=== PATIENT | male | born 1975 | race Caucasian/White ===

== ENCOUNTER 2022-05-22 15:47 | Outpatient (CLI) | payer BC, SELFPAY ==
[2022-05-22 17:27] LABS: Chloride* 99 mmol/L (96-114); Sodium* 134 mmol/L (135-149)
[2022-05-22 17:28] LABS: Potassium* 3.8 mmol/L (3.6-5.1)
[2022-05-22 17:30] LABS: Carbon Dioxide* 30 mmol/L (20-32); Creatinine* 0.5 mg/dL (0.5-1.5); Estimated Glomerular Filt Rate 125 ml/min
[2022-05-22 17:31] LABS: Blood Urea Nitrogen* 13 mg/dL (5-24); Calcium* 9.2 mg/dL (8.4-10.6); Glucose* 330 mg/dL (60-115)
== END 2022-05-22 15:48 | disposition home or self-care (01) ==
LOC: LONREF 15:48
PROVIDERS: PCP Family Medicine; Visit Provider Family Medicine
DX: E13.9 Other specified diabetes mellitus without complications (principal); E78.5 Hyperlipidemia, unspecified
CPT/HCPCS: 80048

== ENCOUNTER 2023-01-16 20:34 | Inpatient (IN) | payer BC, SELFPAY ==
[2023-01-16 20:46] VITALS: BP 106/69; PULSE 104; RESP 18; TEMP 37.2; O2SAT 98; BMI 23.7
[2023-01-16 20:55] VITALS: O2SAT 99
[2023-01-16] MEDS: 0.9 % SODIUM CHLORIDE 1000 ml 1,000 ML IV (20:55)
[2023-01-16] MEDS: ONDANSETRON 2 MG/ML inj 4 MG IVP (20:55)
[2023-01-16 21:23] LABS: Basophils Percent Auto 0.2 % (0.0-3.0); Eosinophils Percent Auto 0.1 % (0.0-7.0); Hematocrit 50.8 % (37.0-53.0); Hemoglobin* 16.8 gm/dL (13.5-17.5); Immature Granulocytes Pct Auto 0.3 %; Lymphocytes Percent Auto 6.4 % (20-44); Mean Corpuscular HGB Conc 33 gm/dL (32-36); Mean Corpuscular Hemoglobin 30 pg (26-34); Mean Corpuscular Volume 89 fL (80-100); Monocytes Percent Auto 4.7 % (0.0-11.0); Neutrophils Percent Auto 88.3 % (42.0-72.0); Platelet Count* 305 K/uL (140-440); RDW Coefficient of Variation % 13.1 % (11.5-15.5); Red Blood Count 5.68 m/uL (4.30-5.90)
[2023-01-16 21:36] LABS: Chloride* 98 mmol/L (96-114); Potassium* 5.2 mmol/L (3.6-5.1); Slide Review Reflex No; Sodium* 136 mmol/L (135-149)
[2023-01-16 21:39] LABS: Anion Gap 33 mEq/L (7-15); Blood Urea Nitrogen* 19 mg/dL (5-24); Est. Creatinine Clearance* 100.98; Estimated Glomerular Filt Rate 92 ml/min
[2023-01-16 21:40] LABS: Calcium* 10.4 mg/dL (8.4-10.6)
[2023-01-16 21:51] LABS: Carbon Dioxide* 5 mmol/L (20-32); Glucose* 406 mg/dL (60-115)
[2023-01-16 22:29] LABS: HCO3 VBG 10 mmol/L (21-28); PCO2 VBG 28 mmHG (40-50)
[2023-01-16 22:33] LABS: Lactate* 1.4 mmol/L (0.5-1.9); PO2 VBG 34.8 mmHG (25-47); pH VBG 7.179 (7.32-7.43)
--- NOTE | 2023-01-16 22:34 | ED.NAVMDI ---
HPI - Nausea/Vomiting/Diarrhea General Chief complaint: Diabetic Related Problem Stated complaint: blood sugar, vomiting Time Seen by Provider: 01/16/23 20:56 History of Present Illness HPI Narrative: Patient is a 47-year-old insulin-dependent diabetic who has had nausea vomiting for last 36 hours. He has not been able to take his insulin and as a result comes in with generalized fatigue dehydration and malaise. He is not making much urine. He has no overt chest pain shortness a breath orthopnea no PND. He has had no diarrhea ice had vomiting with no blood. Patient previously was in his usual good state of health. Interestingly his only home medication is 70 30 insulin. Related Data Home Medications Medication Instructions Recorded Confirmed blood sugar diagnostic (Accu-Chek 10/14/21 01/16/23 Zulema Plus test strips) blood-glucose meter (Accu-Chek 10/14/21 01/16/23 Zulema Plus Meter) lancets (Accu-Chek Softclix 10/14/21 01/16/23 Lancets) pen needle, diabetic 29 gauge x 10/14/21 01/16/23 1/2 atorvastatin 40 mg tablet 40 mg PO ONCE 01/16/23 01/16/23 Previous Rx's Medication Instructions Recorded blood-glucose meter (Blood Glucose #1 ea 10/14/21 Monitoring kit) insulin NPH-regular 70-30 U-100 See Rx Instructions .Route 06/18/22 insulin 100 unit/mL subcutaneous .COMPLEX #15 mL pen (Humulin 70/30 U-100 KwikPen) Allergies Allergy/AdvReac Type Severity Reaction Status Date / Time No Known Allergies Allergy Verified 01/16/23 21:40 Review of Systems Status of ROS: Reports: 10 or more systems reviewed and unremarkable except as noted in History and below [facility] Surgical History History of right inguinal hernia repair ?Z98.890 - Other specified postprocedural states (ICD-10) ?Z87.19 - Personal history of other diseases of the digestive system (ICD-10) History of left inguinal hernia repair ?Z98.890 - Other specified postprocedural states (ICD-10) ?Z87.19 - Personal history of other diseases of the digestive system (ICD-10) Social History Smoking Status: Current every day smoker Exam Narrative: Exam Narrative: EXAM GENERAL: Patient appears fatigued and dehydrated EYES: No scleral icterus. LYMPH: No supraclavicular or cervical lymphadenopathy. SKIN: Visible skin seen during exam normal or with benign process only. EXT: No dependent lower extremity pedal edema. HEART: Regular rate and rhythm with no murmurs, rubs, or gallops. LUNGS: Clear to auscultation bilaterally with no crackles or wheezes. ABD: Soft, non tender, non distended. PSYCH: Good eye contact, speech is not pressured. Const: Vital Signs, click to edit/add: Vital Signs - 24 hr 01/16/23 20:46 01/16/23 20:55 Temperature 98.9 F Pulse Rate [Left P ulse Oximeter] 104 H Respiratory Rate 18 Blood Pressure [Ri ght Upper Arm] 106/69 Pulse Oximetry 98 99 Oxygen Delivery Me thod Room Air Course Course ED Course: Patient seen and examined. Blood sugars noted to be elevated. Secondary blood work ordered. Vital Signs Vital signs: Initial Vital Signs Temperature 98.9 F 01/16/23 20:46 Temperature Source Temporal Artery Scan 01/16/23 20:46 Pulse Rate 104 H 01/16/23 20:46 Respiratory Rate 18 01/16/23 20:46 Blood Pressure 106/69 01/16/23 20:46 Blood Pressure Mean 81 01/16/23 20:46 Blood Pressure Position Sitting 01/16/23 20:46 Pulse Oximetry 98 01/16/23 20:46 Oxygen Delivery Method Room Air 01/16/23 20:46 Vital Signs Temperature 98.9 F 01/16/23 20:46 Pulse Rate 104 H 01/16/23 20:46 Respiratory Rate 18 01/16/23 20:46 Blood Pressure 106/69 01/16/23 20:46 Pulse Oximetry 98 01/16/23 20:46 Oxygen Delivery Method Room Air 01/16/23 20:46 Temperature 98.9 F 01/16/23 20:46 Pulse Rate 104 H 01/16/23 20:46 Respiratory Rate 18 01/16/23 20:46 Blood Pressure 106/69 01/16/23 20:46 Pulse Oximetry 99 01/16/23 20:55 Oxygen Delivery Method Room Air 01/16/23 20:46 MDM - Nausea/Vomiting/Diarrhea MDM Narrative Medical decision making narrative: Patient presents with nausea vomiting dehydration the setting of insulin-dependent diabetes mellitus. He has elevated blood sugars well as a very widened anion gap. We are treating with aggressive hydration. I have given him 10 units of regular insulin and have arranged for ICU placement to initiate insulin drip. Lactate pending venous pH pending blood cultures pending. Differential Diagnosis Differential diagnosis: Likely traveler's diarrhea, food poisoning, gastroenteritis, clostridium difficile infection, drug-induced nausea and vomiting and dehydration Lab Data Labs: Lab Results 01/16/23 01/16/23 Range/Units 20:50 22:08 WBC 17.40 H (4.50-11.00) K/uL RBC 5.68 (4.30-5.90) m/uL Hgb 16.8 (13.5-17.5) gm/dL Hct 50.8 (37.0-53.0) % MCV 89 (80-100) fL MCH 30 (26-34) pg MCHC 33 (32-36) gm/dL RDW Coeff of Des 13.1 (11.5-15.5) % Plt Count 305 (140-440) K/uL Neut % (Auto) 88.3 H (42.0-72.0) % Lymph % (Auto) 6.4 L (20-44) % Pettis % (Auto) 4.7 (0.0-11.0) % Eos % (Auto) 0.1 (0.0-7.0) % Baso % (Auto) 0.2 (0.0-3.0) % Neut # (Auto) 15.40 H (1.7-7.0) K/uL Lymph # (Auto) 1.10 (0.90-2.90) K/uL Pettis # (Auto) 0.80 (0.00-0.90) K/UL Eos # (Auto) 0.00 (0.00-0.50) K/uL Baso # (Auto) 0.00 (0.00-0.30) K/uL Abs Immat Gran (auto) 0.10 (0.00-0.30) K/uL Imm/Tot Granulo (auto) 0.3 % VBG pH 7.179 L* (7.32-7.43) VBG pCO2 28 L (40-50) mmHG VBG pO2 34.8 (25-47) mmHG VBG HCO3 10 L (21-28) mmol/L Sodium 136 (135-149) mmol/L Potassium 5.2 H (3.6-5.1) mmol/L Chloride 98 (96-114) mmol/L Carbon Dioxide 5 L* (20-32) mmol/L Anion Gap 33 H (7-15) mEq/L BUN 19 (5-24) mg/dL Creatinine 1.0 (0.5-1.5) mg/dL Estimated Creat Clear 100.98 Estimated GFR 92 ml/min Glucose 406 H* (60-115) mg/dL Calcium 10.4 (8.4-10.6) mg/dL Discharge Plan Discharge Clinical Impression: Diabetic keto-acidosis Patient Disposition: Admitted As Inpatient Condition: Improved Activity Level: Other Discharge Diet: Other Prescriptions: No Action (DME) pen needle, diabetic 29 gauge x 1/2 needle See Rx Instructions .Route Rx Instructions: 4 times daily. (DME) lancets [Accu-Chek Softclix Lancets] Misc See Rx Instructions .Route Rx Instructions: TEST FOUR TIMES DAILY. (DME) Accu-Chek Zulema Plus test strp Strip See Rx Instructions .Route Rx Instructions: TEST FOUR TIMES DAILY. (DME) blood-glucose meter [Accu-Chek Zulema Plus Meter] Misc 0 .Route (DME) blood-glucose meter [Blood Glucose Monitoring] Kit See Rx Instructions .Route Qty: 1 0RF Rx Instructions: As directed atorvastatin 40 mg tablet 40 mg PO ONCE Humulin 70/30 U-100 KwikPen 100 unit/mL (70-30) insulin pen See Rx Instructions .ROUTE .COMPLEX Qty: 15 5RF Dose Instruction: USE 18 UNITS EVERY MORNING AND 22 UNITS EVERY SUPPER Rx Instructions: USE 18 UNITS EVERY MORNING AND 22 UNITS EVERY SUPPER Follow Up/Referrals: Kody Mulligan MD [Primary Care Provider] -
[2023-01-16 22:55] LABS: Lactate* 1.4 mmol/L (0.5-1.9)
[2023-01-16 23:00] VITALS: BP 111/69; PULSE 81; RESP 16; TEMP 36.7; O2SAT 97
[2023-01-16 23:15] VITALS: BP 110/71; PULSE 84; RESP 18; TEMP 36.8; O2SAT 99
[2023-01-16 23:17] LABS: Troponin I* < 0.01 ng/mL (0.01-0.04)
[2023-01-16 23:19] VITALS: BP 110/71; PULSE 84; RESP 18; TEMP 36.8
[2023-01-16 23:30] VITALS: O2SAT 99
[2023-01-16 23:52] LABS: Hemoglobin A1C* 11.77 % (0-5.6)
[2023-01-17] VITALS (7 sets, daily range): BP systolic 94–111; BP diastolic 59–69; PULSE 77–86; RESP 16–20; TEMP 36.6–37.1; O2SAT 95–98; BMI 20.6
[2023-01-17 00:15] LABS: HCO3 VBG 14 mmol/L (21-28); PCO2 VBG 33 mmHG (40-50); PO2 VBG 30.7 mmHG (25-47)
[2023-01-17 00:18] LABS: pH VBG 7.228 (7.32-7.43)
[2023-01-17] MEDS: PANTOPRAZOLE SODIUM 40 MG INJ IVP (00:18)
[2023-01-17] MEDS: LACTATED RINGERS 1000 ML 1,000 ML 125 ML IV (00:18)
[2023-01-17] MEDS: INSULIN INF 100 UNIT/100 ML 100 UNIT/100 ML BAG IVPB (00:20)
[2023-01-17 00:48] LABS: Chloride* 103 mmol/L (96-114); Potassium* 4.9 mmol/L (3.6-5.1); Sodium* 137 mmol/L (135-149)
[2023-01-17 00:51] LABS: Anion Gap 24 mEq/L (7-15); Blood Urea Nitrogen* 19 mg/dL (5-24); Carbon Dioxide* 10 mmol/L (20-32); Creatinine* 0.7 mg/dL (0.5-1.5); Est. Creatinine Clearance* 144.26; Estimated Glomerular Filt Rate 113 ml/min; Glucose* 228 mg/dL (60-115)
[2023-01-17 00:52] LABS: Calcium* 9.6 mg/dL (8.4-10.6)
--- NOTE | 2023-01-17 01:00 | P.IMHP_ITS ---
Hospitalist- H&P: HPI History of Present Illness Date Seen: 01/17/23 Chief complaint: blood sugar, vomiting Narrative: Jamey Villanueva is a 47 year old male Seen in his hospital room at [facility] with the assistance of nursing staff. He is seen as an interactive telehealth visit. He tells me he has not been feeling well for the last couple of days he started develop nausea vomiting and just continued to get worse. When he checked his blood sugar tonight it was over 400 his significant other urged him to come in. He came into the emergency room he was evaluated found to be markedly acidotic with an elevated anion gap. He was felt to be in DKA. He has been given IV fluids he has been started on an insulin drip. He is currently feeling better. His nausea has improved. He denies any fevers chills chest pain shortness of breath. He felt like he had flulike symptoms prior to this starting. Otherwise he does not have any other complaints of. Review of Systems Narrative: A complete review of systems was performed positive pertinence and negatives per HPI [facility] Medical History Type 2 diabetes mellitus ?E11.9 - Type 2 diabetes mellitus without complications (ICD-10) Surgical History History of right inguinal hernia repair ?Z98.890 - Other specified postprocedural states (ICD-10) ?Z87.19 - Personal history of other diseases of the digestive system (ICD-10) History of left inguinal hernia repair ?Z98.890 - Other specified postprocedural states (ICD-10) ?Z87.19 - Personal history of other diseases of the digestive system (ICD-10) Social History Smoking Status: Current every day smoker How often do you have a drink containing alcohol: never How often do you have six or more drinks on one occasion: Never AUDIT-C Alcohol total score: 0 Non-prescribed substance use: denies use Meds Home Medications and Allergies Home Medications Medication Instructions Recorded Confirmed Type blood sugar diagnostic (Accu-Chek 10/14/21 01/16/23 History Zulema Plus test strips) blood-glucose meter (Accu-Chek 10/14/21 01/16/23 History Zulema Plus Meter) lancets (Accu-Chek Softclix 10/14/21 01/16/23 History Lancets) pen needle, diabetic 29 gauge x 10/14/21 01/16/23 History 1/2 atorvastatin 40 mg tablet 40 mg PO ONCE 01/16/23 01/16/23 History Allergies Allergy/AdvReac Type Severity Reaction Status Date / Time No Known Allergies Allergy Verified 01/16/23 21:40 Exam Narrative: Exam Narrative: Patient is lying in bed he is alert awake he is in no acute distress he does not look toxic he is pleasant he is interactive. Head atraumatic normocephalic pupils equal reactive there is no scleral icterus no conjunctival injection mucous membranes are moist tongue and uvula midline Neck is soft supple no adenopathy per nursing Heart regular rate and rhythm without murmurs rubs or gallops Lungs are clear to auscultation with good air movement Abdomen soft nontender bowel sounds present Extremities warm without cyanosis clubbing edema Cranial nerves II through XII grossly intact he moves all of his extremities equally, no focal deficits Const: Vital Signs, click to edit/add: Vital Signs - 24 hr 01/16/23 20:46 01/16/23 20:55 01/16/23 23:00 Temperature 98.9 F 98.0 F Pulse Rate [Left P ulse Oximeter] 104 H Pulse Rate [Pulse Oximeter] 81 Respiratory Rate 18 16 Blood Pressure [Le ft Arm] 111/69 Blood Pressure [Ri ght Upper Arm] 106/69 Pulse Oximetry 98 99 97 Oxygen Delivery Me thod Room Air Room Air 01/16/23 23:15 01/16/23 23:19 01/16/23 23:30 Temperature 98.2 F 98.2 F Pulse Rate [Left P ulse Oximeter] 84 84 Pulse Rate [Pulse Oximeter] Respiratory Rate 18 18 Blood Pressure [Le ft Arm] Blood Pressure [Ri ght Upper Arm] 110/71 110/71 Pulse Oximetry 99 99 Oxygen Delivery Me thod Room Air Hospitalist - H&P: Result Labs Labs: Short CBC 01/16/23 Range/Units 20:50 WBC 17.40 H (4.50-11.00) K/uL Hgb 16.8 (13.5-17.5) gm/dL Hct 50.8 (37.0-53.0) % Plt Count 305 (140-440) K/uL BMP 01/16/23 01/17/23 20:50 00:10 Sodium 136 137 Potassium 5.2 H 4.9 Chloride 98 103 Carbon Dioxide 5 L* 10 L BUN 19 19 Creatinine 1.0 0.7 Glucose 406 H* 228 H Calcium 10.4 9.6 Cardiac Enzymes 01/16/23 Range/Units 22:08 Troponin I < 0.01 L (0.01-0.04) ng/mL Assessment and Plan Assessment and plan (1) Diabetic keto-acidosis: Status: Acute (2) Tobacco abuse: Status: Acute (3) Latent autoimmune diabetes in adults, managed as type 1: Status: Acute (4) Leukocytosis: Status: Acute (5) Hyperkalemia: Status: Acute (6) High anion gap metabolic acidosis: Status: Acute Plan Diabetic ketoacidosis?at this point he is currently on an insulin drip. His anion gap is elevated. His sugars seem to be coming down nicely. A new BMP is currently pending. Since his blood sugar is now below 250 actually down to 211 we will transition him over to dextrose containing fluid. We will plan to use D5 NS as his sodium is normal. We will plan to check another BMP in about 4 hours along with a magnesium. Once his acidosis and anion gap has improved consider transitioning him over to his 70/30 insulin. Ideally this would be closer to the morning with his normal insulin dosing x1. Patient appears to use 40 units of insulin per 24 hours. Anticipate him to get down to needing around 2 units/h on his drip. Nicotine abuse?I did offer patient opportunity for nicotine patch which she did decline. Encouraged him to discontinue smoking. Type 1 diabetes?latent autoimmune diabetes effectively type I is evidenced by his DKA. Patient does seem to have fairly poor control as evidenced by his elevated hemoglobin A1c. Leukocytosis?likely acute demargination from the stress of the DKA. Seems unlikely to be an infection no cough no fever no chills he did have flulike symptoms prior to this coming on but seems to be mostly related to GI symptoms which certainly could be related to DKA as well. We will plan to recheck a CBC in the morning continue to watch him clinically. Hyperkalemia?likely secondary to potassium shifts from acidosis. Anticipate his potassium to come down as his acidosis improves. We will plan to recheck a BMP in the morning. DVT prophylaxis?anticipate patient to be out of the hospital fairly quickly he should also be fairly ambulatory. I think he is low risk for DVT we will hold off on DVT prophylaxis. CODE STATUS was discussed on admission and he wishes to be a full code Telehealth Visit:? Today's History and Physical is provided via interactive telehealth by (Gage France DO, Pharm. D.).? Patient is located at [facility].? Provider is located at [facility].? Nursing staff assisted with the patient's exam. The visit being done today meets criteria for a telehealth visit and the patient or patient?s parent/guardian is aware the visit is a telehealth visit. Camera Start Time: 0025 Camera End Time: 048 Gage France DO, Pharm. D.
[2023-01-17] MEDS: 5 % DEXTROSE/0.9% SOD CHLORIDE 1,000 ML 125 ML IV (01:15)
[2023-01-17 06:39] LABS: White Blood Count* 10.07 K/uL (4.50-11.00)
[2023-01-17 06:40] LABS: Basophils Absolute Auto 0.02 K/uL (0.00-0.30); Basophils Percent Auto 0.2 % (0.0-3.0); Eosinophils Absolute Auto 0.03 K/uL (0.00-0.50); Eosinophils Percent Auto 0.3 % (0.0-7.0); Hemoglobin* 14.7 gm/dL (13.5-17.5); Immature Granulocytes Abs Auto 0.03 K/uL (0.00-0.30); Immature Granulocytes Pct Auto 0.3 %; Lymphocytes Percent Auto 16.9 % (20-44); Mean Corpuscular HGB Conc 34 gm/dL (32-36); Mean Corpuscular Hemoglobin 30 pg (26-34); Mean Corpuscular Volume 86 fL (80-100); Monocytes Percent Auto 10.2 % (0.0-11.0); Neutrophils Percent Auto 72.1 % (42.0-72.0); Platelet Count* 255 K/uL (140-440); RDW Coefficient of Variation % 13.1 % (11.5-15.5); Red Blood Count 4.98 m/uL (4.30-5.90)
--- NOTE | 2023-01-17 06:41 | PC.NURSE ---
Patient to the unit at 2320 with spouse at bedside. Denies pain. Denies CP. BG 266. Insulin drip initiated. [facility] Telehealth assessed. Up date Dr. France on hourly BG checks. Verbal orders received and followed with each BG to adjust Insulin drip. Up independent. Voiding.
[2023-01-17 06:44] LABS: Slide Review Reflex No
[2023-01-17 07:04] LABS: Chloride* 107 mmol/L (96-114)
[2023-01-17 07:05] LABS: Potassium* 4.1 mmol/L (3.6-5.1); Sodium* 134 mmol/L (135-149)
[2023-01-17 07:07] LABS: Creatinine* 0.7 mg/dL (0.5-1.5); Est. Creatinine Clearance* 127.76; Estimated Glomerular Filt Rate 113 ml/min
[2023-01-17 07:08] LABS: Anion Gap 11 mEq/L (7-15); Blood Urea Nitrogen* 21 mg/dL (5-24); Calcium* 9.7 mg/dL (8.4-10.6); Carbon Dioxide* 16 mmol/L (20-32); Glucose* 205 mg/dL (60-115); Magnesium* 2.1 mg/dL (1.5-2.6)
[2023-01-17] MEDS: 5 % DEXTROSE IN LAC RINGER'S 1,000 ML 125 ML IV (07:34)
[2023-01-17 11:52] LABS: Chloride* 105 mmol/L (96-114); Potassium* 4.2 mmol/L (3.6-5.1); Sodium* 137 mmol/L (135-149)
[2023-01-17 11:55] LABS: Anion Gap 11 mEq/L (7-15); Blood Urea Nitrogen* 20 mg/dL (5-24); Carbon Dioxide* 21 mmol/L (20-32); Creatinine* 0.6 mg/dL (0.5-1.5); Est. Creatinine Clearance* 149.05; Estimated Glomerular Filt Rate 118 ml/min; Glucose* 99 mg/dL (60-115)
[2023-01-17 11:56] LABS: Calcium* 9.9 mg/dL (8.4-10.6)
--- NOTE | 2023-01-17 13:14 | PC.NURSE ---
Discharge Summary: Patient pleasant and cooperative. Afebrile. BG checks q1h until 0830 and insulin drip stopped at 0900 per MD. Tolerating regular diet with no nausea. Up independently in room. Patient discharged home at 1238 with all personal belongings accompanied by spouse. Discharge instructions including diagnosis, medications and follow up plan discussed with patient and voiced understanding.
--- NOTE | 2023-01-17 15:05 | PM.DS1 ---
DS: Providers Provider Date Seen: 01/17/23 Date of admission: 01/16/23 23:27 Primary care physician: Kody Mulligan MD Admitting Clinician: Maxine Renee MD Consults: 01/16/23 23:27 Consult to Lead Web Developer [CONS] Routine Comment: Lost to f/u - ? situational, money Reason for Consult:: Social Service Consult Attending Physician on discharge: Dean Sterling MD Date of Discharge: 01/17/23 DS: Diagnosis Discharge Diagnosis (1) Diabetic keto-acidosis: Status: Acute Problem details: Patient mid to the hospital with diabetic ketoacidosis. Treated with insulin drip and IV fluids. Recovered quite quickly. (2) Tobacco abuse: Status: Acute Problem details: Ongoing smoking (3) Latent autoimmune diabetes in adults, managed as type 1: Status: Acute Problem details: Patient under the impression that he has type 2 diabetes. He has had a previous episode of DKA when he ran out of insulin. Clearly had presentation of DKA again today indicating predominantly this is type 1 diabetes dependent on insulin. Hemoglobin A1c 11.7 indicating poor control of blood sugars DS: Summary Hospital Course Hospital Course: 47-year-old male on insulin for diabetes admitted to the hospital with a 2 day history of feeling ill and vomiting. On admission he was found to be hyperglycemic with a anion gap metabolic acidosis. This was thought to be a recurrent episode of DKA. He had previously had an episode a few years ago when he ran out of insulin. He had the impression that he had type 2 diabetes but his clinical history indicates that this is type 1, insulin-dependent diabetes. In the hospital he was treated with an insulin drip and IV fluids. With this he had relatively quick recovery with normalization of his acid-base status, electrolytes and blood sugar. This morning I discussed with him initiating a basal bolus regimen of insulin. He was in agreement with this. We started with Levemir and NovoLog at mealtimes. At lunch today he decided he would rather return to his NovoLog 70/30 mix that he has been using at home. After prolonged discussion about risks and benefits of various therapies he has elected to continue the 70/30 at home. He has been on 20 units twice daily. I have recommended that we increase his morning 70/30 dose to 30 units and continue 20 units before his evening meal. I have asked that he check his blood sugar at least twice a day before administering insulin. If he continues to have elevated blood sugars above 300 I have given him a recommendation to increase the dose of insulin by up to 10% a day. Also guidelines for hypoglycemia. He is to follow up with his primary care doctor this week to review his blood sugar control and insulin plan. My recommendation now is that he see an big data platform architect. I think his diabetes would be best managed with a continues glucose monitor and insulin pump. He is open to this. I strongly urged him to stop smoking and discussed the high risk for micro vascular and macrovascular disease and neuropathy related to uncontrolled diabetes plus smoking. I recommended that he stay in the hospital for us to adjust his insulin a more carefully but he is very anxious to go home and so will be discharged for close outpatient follow-up Status at Discharge Functional status at discharge: independent ambulation Overall status at discharge: patient is back to baseline Time Spent with Patient Time attestation: Total time spent providing and/or coordinating discharge services: 60 minutes, 45 minutes in coordination of care and discussing with patient and ongoing evaluation management of type 1 diabetes Time spent: Greater than 30 minutes Exam Narrative: Exam Narrative: He is alert and appears in no distress. Speech is normal. He is oriented to his circumstances. Respirations are clear to auscultation. Cardiovascular: S1, S2, regular rate and rhythm. No murmur gallop or rub. Abdomen is soft without tenderness or mass. Extremities without edema. He has intact sensation and pulses in his feet. Const: Vital Signs, click to edit/add: Vital Signs - 24 hr 01/16/23 20:46 01/16/23 20:55 01/16/23 23:00 Temperature 98.9 F 98.0 F Pulse Rate Pulse Rate [Left P ulse Oximeter] 104 H Pulse Rate [Pulse Oximeter] 81 Respiratory Rate 18 16 Blood Pressure [Le ft Arm] 111/69 Blood Pressure [Ri ght Upper Arm] 106/69 Pulse Oximetry 98 99 97 Oxygen Delivery Me thod Room Air Room Air 01/16/23 23:15 01/16/23 23:19 01/16/23 23:30 Temperature 98.2 F 98.2 F Pulse Rate Pulse Rate [Left P ulse Oximeter] 84 84 Pulse Rate [Pulse Oximeter] Respiratory Rate 18 18 Blood Pressure [Le ft Arm] Blood Pressure [Ri ght Upper Arm] 110/71 110/71 Pulse Oximetry 99 99 Oxygen Delivery Me thod Room Air 01/17/23 01:26 01/17/23 01:30 01/17/23 01:55 Temperature 98.0 F 98.1 F Pulse Rate 86 Pulse Rate [Left P ulse Oximeter] Pulse Rate [Pulse Oximeter] 81 83 Respiratory Rate 18 18 Blood Pressure [Le ft Arm] 111/69 94/64 Blood Pressure [Ri ght Upper Arm] Pulse Oximetry 97 97 Oxygen Delivery Me thod Room Air Room Air 01/17/23 03:00 01/17/23 05:07 01/17/23 07:00 Temperature 98.4 F 98.8 F Pulse Rate Pulse Rate [Left P ulse Oximeter] Pulse Rate [Pulse Oximeter] 82 85 Respiratory Rate 16 20 Blood Pressure [Le ft Arm] 97/59 L 99/61 Blood Pressure [Ri ght Upper Arm] Pulse Oximetry 96 95 98 Oxygen Delivery Me thod Room Air Room Air Room Air 01/17/23 07:00 01/17/23 07:00 01/17/23 07:00 Temperature 98.2 F Pulse Rate 77 Pulse Rate [Left P ulse Oximeter] Pulse Rate [Pulse Oximeter] 78 78 Respiratory Rate 18 18 Blood Pressure [Le ft Arm] 102/66 Blood Pressure [Ri ght Upper Arm] Pulse Oximetry 98 Oxygen Delivery Me thod Room Air 01/17/23 11:00 Temperature 97.9 F Pulse Rate Pulse Rate [Left P ulse Oximeter] Pulse Rate [Pulse Oximeter] 77 Respiratory Rate 16 Blood Pressure [Le ft Arm] 104/67 Blood Pressure [Ri ght Upper Arm] Pulse Oximetry 97 Oxygen Delivery Me thod Room Air Documenting provider has reviewed patient's vital signs: yes DS: Data Data Completed and Pending Labs on day of discharge: Labs from last 24 hours 01/17/23 01/17/23 01/17/23 11:25 06:07 00:10 WBC 10.07 RBC 4.98 Hgb 14.7 Hct 43.0 MCV 86 MCH 30 MCHC 34 RDW Coeff of Des 13.1 Plt Count 255 Neut % (Auto) 72.1 H Lymph % (Auto) 16.9 L [place] % (Auto) 10.2 Eos % (Auto) 0.3 Baso % (Auto) 0.2 Neut # (Auto) 7.30 H Lymph # (Auto) 1.70 [place] # (Auto) 1.00 H Eos # (Auto) 0.03 Baso # (Auto) 0.02 Abs Immat Gran (auto) 0.03 Imm/Tot Granulo (auto) 0.3 VBG pH 7.228 L* VBG pCO2 33 L VBG pO2 30.7 VBG HCO3 14 L Sodium 137 134 L 137 Potassium 4.2 4.1 4.9 Chloride 105 107 103 Carbon Dioxide 21 16 L 10 L Anion Gap 11 11 24 H BUN 20 21 19 Creatinine 0.6 0.7 0.7 Estimated Creat Clear 149.05 127.76 144.26 Estimated GFR 118 113 113 Glucose 99 205 H 228 H Hemoglobin A1c Lactate Calcium 9.9 9.7 9.6 Magnesium 2.1 Troponin I Lab Acknowledgement 01/16/23 01/16/23 01/16/23 23:26 22:33 22:08 WBC RBC Hgb Hct MCV MCH MCHC RDW Coeff of Des Plt Count Neut % (Auto) Lymph % (Auto) [place] % (Auto) Eos % (Auto) Baso % (Auto) Neut # (Auto) Lymph # (Auto) [place] # (Auto) Eos # (Auto) Baso # (Auto) Abs Immat Gran (auto) Imm/Tot Granulo (auto) VBG pH 7.179 L* VBG pCO2 28 L VBG pO2 34.8 VBG HCO3 10 L Sodium Potassium Chloride Carbon Dioxide Anion Gap BUN Creatinine Estimated Creat Clear Estimated GFR Glucose Hemoglobin A1c Lactate 1.4 1.4 Calcium Magnesium Troponin I < 0.01 L Lab Acknowledgement Test Added 01/16/23 01/16/23 20:55 20:50 WBC 17.40 H RBC 5.68 Hgb 16.8 Hct 50.8 MCV 89 MCH 30 MCHC 33 RDW Coeff of Des 13.1 Plt Count 305 Neut % (Auto) 88.3 H Lymph % (Auto) 6.4 L [place] % (Auto) 4.7 Eos % (Auto) 0.1 Baso % (Auto) 0.2 Neut # (Auto) 15.40 H Lymph # (Auto) 1.10 [place] # (Auto) 0.80 Eos # (Auto) 0.00 Baso # (Auto) 0.00 Abs Immat Gran (auto) 0.10 Imm/Tot Granulo (auto) 0.3 VBG pH VBG pCO2 VBG pO2 VBG HCO3 Sodium 136 Potassium 5.2 H Chloride 98 Carbon Dioxide 5 L* Anion Gap 33 H BUN 19 Creatinine 1.0 Estimated Creat Clear 100.98 Estimated GFR 92 Glucose 406 H* Hemoglobin A1c 11.77 H Lactate Calcium 10.4 Magnesium Troponin I Lab Acknowledgement Discharge Plan Discharge Disposition: Home, Self-Care Date of Admission: 01/16/23 23:27 Attending Provider on Discharge: Chava Sterling Primary Care Provider: Kody Mulligan Condition: Improved Anticipated Discharge Date/Time: 01/17/23 12:06 Discharge Medications: Continued (DME) pen needle, diabetic 29 gauge x 1/2 needle See Rx Instructions .Route Rx Instructions: 4 times daily. (DME) lancets [Accu-Chek Softclix Lancets] Misc See Rx Instructions .Route Rx Instructions: TEST FOUR TIMES DAILY. (DME) Accu-Chek Zulema Plus test strp Strip See Rx Instructions .Route Rx Instructions: TEST FOUR TIMES DAILY. (DME) blood-glucose meter [Accu-Chek Zulema Plus Meter] Misc 0 .Route (DME) blood-glucose meter [Blood Glucose Monitoring] Kit See Rx Instructions .Route Qty: 1 0RF Rx Instructions: As directed atorvastatin 40 mg tablet 40 mg PO HS Changed Humulin 70/30 U-100 KwikPen 100 unit/mL (70-30) insulin pen See Rx Instructions .ROUTE .COMPLEX Qty: 15 0RF Dose Instruction: USE 18 UNITS EVERY MORNING AND 22 UNITS EVERY SUPPER Rx Instructions: USE 30 UNITS EVERY MORNING AND 20 UNITS EVERY SUPPER Discharge Orders: Discharge Order (Routine); Ordered 01/17/23 Ordered By: Chava Sterling Patient Education: Diabetic Ketoacidosis (DC) Additional Instructions: Your hospitalized for diabetic ketoacidosis. This is typical of someone who has type 1 diabetes. This means that you need to take insulin to live. We talked about various ways of giving insulin. At this time you are choosing to continue 70/30 insulin twice a day. It appears you need more insulin. I have changed your insulin dose to 30 units before breakfast and 20 units before your evening meal. The correct amount of insulin is uncertain to me. If you check your blood sugars regularly we can get a better idea of the appropriate dose. In the short term I will have you adjust her insulin as follows: If your evening blood sugar is greater than 300 you should increase your morning insulin by 10%. If your morning blood sugar is greater than 300 you should increase her evening insulin by 10%. If you have blood sugars less than 100 you should decrease your insulin by 20%. See your doctor this week. Bring your blood sugar record to review. I recommend you see an big data platform architect. Eventually I hope you will get a continuous glucose monitor and insulin pump to better manage diabetes and avoid the many serious complications of uncontrolled blood sugar. I encourage you to look into options for stopping smoking. Smoking and diabetes together magnified is your risk of heart attack, stroke, kidney failure and nerve damage and vascular damage to your feet. Talk with Dr. Celis about this as well. Activity Level: Activity as Tolerated and Other Discharge Diet: Other Follow Up Appointments: Kody Mulligan MD [Primary Care Provider] - 01/25/23 9:00 am (4-5 days) Forms: [facility] Info Instructions
== END 2023-01-17 12:38 | disposition home or self-care (01) | DRG 420 ==
LOC: ED 22:37 → MEDSURG 23:16
PROVIDERS: Family Medicine; Internal Medicine; Admitting Provider Family Medicine; Emergency Provider Internal Medicine; PCP Family Medicine; Visit Provider Family Medicine
DX: E10.10 Type 1 diabetes mellitus with ketoacidosis without coma (principal); E10.65 Type 1 diabetes mellitus with hyperglycemia; Z79.4 Long term (current) use of insulin; F17.210 Nicotine dependence, cigarettes, uncomplicated; E87.5 Hyperkalemia
CPT/HCPCS: 36415; 80048; 82803; 82962; 83036; 83605; 83735; 84484; 85025; 87040; 94761; 99284; 99285; C9113; J2405; J3590; J7030; J7042; J7120

== ENCOUNTER 2023-04-26 15:06 | Outpatient (CLI) | payer BC, SELFPAY | END 2023-04-26 15:07 | disposition home or self-care (01) | LOC: LKVREF 15:07 | PROVIDERS: PCP Family Medicine; Visit Provider Family Medicine | DX: E78.2 Mixed hyperlipidemia (principal) | CPT/HCPCS: 80061 ==

== ENCOUNTER 2024-07-14 15:07 | Outpatient (CLI) | payer BC, SELFPAY | END 2024-07-14 15:08 | disposition home or self-care (01) | PROVIDERS: PCP Family Medicine; Visit Provider Family Medicine | DX: E78.2 Mixed hyperlipidemia (principal); E13.65 Other specified diabetes mellitus with hyperglycemia; Z79.4 Long term (current) use of insulin; Z12.5 Encounter for screening for malignant neoplasm of prostate | CPT/HCPCS: 80048; 80061; 84681; G0103 ==